=== PATIENT | female | born 1985 | race Caucasian/White ===

== ENCOUNTER 2017-11-15 14:03 | Emergency (ER) | payer BC ==
[~2017-11-15] VITALS: Ht 160 cm; Wt 56.7 kg
[2017-11-15] MEDS ORDERED: NAPROSYN500 MG PO (14:43)
[2017-11-15] MEDS ORDERED: KEFLEX500 M1 PO (14:43)
[2017-11-15] MEDS ORDERED: LORATIDINE 10 M10 M1 PO (14:43)
[2017-11-15 14:57] VITALS: BP 104/70
== END 2017-11-15 14:57 | disposition home or self-care (01) ==
LOC: M.ERS 14:03
DX: J02.9 Acute pharyngitis, unspecified (principal); J30.2 Other seasonal allergic rhinitis